=== PATIENT | male | born 1975 | race Asian ===

== ENCOUNTER 2018-09-29 15:25 | Emergency (ER) | payer SELFPAY ==
[~2018-09-29] VITALS: Ht 167.6 cm; Wt 88.0 kg
[2018-09-29 15:42] VITALS: BP 143/70
[2018-09-29] MEDS ORDERED: TDAP [DIPH/PERTUSSIS/TET] 0.5 ML VIAL IM ONE ×2 (16:28→16:30)
--- NOTE | 2018-09-29 16:34 | NUR ---
PROVIDED W WOUND CARE. D/C IN STABLE CONDITION.
== END 2018-09-29 16:36 | disposition home or self-care (01) ==
LOC: ER 15:39
DX: S61.211A Laceration without foreign body of left index finger without damage to nail, initial encounter (principal); I10 Essential (primary) hypertension; Z23 Encounter for immunization; W25.XXXA Contact with sharp glass, initial encounter; Y93.89 Activity, other specified; Y92.89 Other specified places as the place of occurrence of the external cause; Y99.8 Other external cause status
CPT/HCPCS: 90471; 90715; 99283; A6403